=== PATIENT | male | born 1945 | race Caucasian/White ===

== ENCOUNTER 2018-07-17 20:42 | Emergency (ER) | END 2018-07-17 23:24 | disposition home or self-care (01) ==

== ENCOUNTER 2019-02-24 23:19 | Emergency (ER) | payer SELFPAY ==
[~2019-02-24] VITALS: Wt 79.0 kg
[~2019-02-24 23:19] MED LIST: RANI150T35 PO
[2019-02-24 23:34] VITALS: BP 141/71; PULSE 71; RESP 16
== END 2019-02-24 23:35 | disposition left against medical advice (07) ==
LOC: E/R 23:19
DX: Z53.21 Procedure and treatment not carried out due to patient leaving prior to being seen by health care provider (principal)

== ENCOUNTER 2019-09-20 01:02 | Inpatient (IN) | payer MEDICARE, BC ==
[~2019-09-20] VITALS: Ht 175.3 cm; Wt 86.6 kg
[~2019-09-20 01:02] MED LIST changes: +ASPI-817 ORAL; +ATOR-2 PO; +CLOP75TA28 PO; +ERGO500013 ORAL; +FURO40TA4 PO; +LEVO750T25 PO; +MAG ORAL; +RANI-535 PO; -RANI150T35 PO
[2019-09-20] MEDS ORDERED: IPRATROPIUM (NEB) 0.5 MG/2.5 ML AMP INH STA (01:06)
[2019-09-20] MEDS ORDERED: ALBUTEROL 0.083% (NEB) 2.5 MG/3 ML AMP INH STA (01:06)
[2019-09-20] MEDS ORDERED: NITROGLYCERIN 50 MG/D5W (PMX) 250 ML IV STA (01:11)
[2019-09-20] MEDS ORDERED: AZITHROMYCIN 500MG/NS (PMX) 250 ML IV STA (01:46)
[2019-09-20] MEDS ORDERED: CEFTRIAXONE 1 GM/50 ML (PMX) 50 ML IVPB STA (01:46)
[2019-09-20] MEDS ORDERED: FUROSEMIDE 40 MG INJ IV ONE (02:00)
[2019-09-20] MEDS ORDERED: ACETAMINOPHEN 325 MG TAB PO PRN ×2 (03:30→06:00)
[2019-09-20] MEDS ORDERED: ONDANSETRON 4 MG INJ IV PRN ×2 (03:30→06:00)
[2019-09-20] MEDS ORDERED: ALBUTEROL/IPRATROPIUM (NEB) 3 ML AMP HHN PRN (06:00)
[2019-09-20] MEDS ORDERED: NACL 0.9% 3 ML SYG IV SCH (06:00)
[2019-09-20] MEDS ORDERED: NITROGLYCERIN (SL) 0.4 MG TAB SL PRN (06:00)
[2019-09-20] MEDS ORDERED: LEVOFLOXACIN 750MG/D5W (PMX) 150 ML IVPB SCH (09:00)
[2019-09-20] MEDS ORDERED: HEPARIN 5,000 UNIT/1 ML VIAL SC SCH (09:00)
[2019-09-20] MEDS: ASPIRIN 81 MG TAB PO SCH (09:07)
[2019-09-20] MEDS: FAMOTIDINE 20 MG TAB PO SCH (09:07)
[2019-09-20] MEDS ORDERED: GLUCOSE GEL 15 GRAM TUBE BUCCAL PRN (10:00)
[2019-09-20] MEDS ORDERED: GLUCAGON 1 MG INJ IM PRN (10:00)
[2019-09-20] MEDS ORDERED: DEXTROSE 50% 50 ML SYRINGE IV PRN ×2 (10:00)
[2019-09-20] MEDS ORDERED: GLUCOSE GEL 15 GRAM TUBE PO PRN ×2 (10:00)
[2019-09-20] MEDS ORDERED: HEPARIN 1000 UNITS/ML 10 ML INJ IV PRN (10:00)
[2019-09-20] MEDS ORDERED: HEPARIN 1000 UNITS/ML 10 ML INJ IV ONE (10:00)
[2019-09-20] MEDS ORDERED: HEPARIN 25000 UNITS/250 ML 250 ML IV SCH ×2 (10:00→17:00)
[2019-09-20 10:16] VITALS: BP 145/79; PULSE 83; RESP 24
[2019-09-20 10:18] VITALS: Ht 175.3 cm; Wt 86.6 kg
[2019-09-20] MEDS: ATORVASTATIN 80 MG TAB PO SCH (11:59)
[2019-09-20 12:04] VITALS: BP 145/68; PULSE 70; RESP 20
[2019-09-20] MEDS: CLOPIDOGREL 75 MG TAB PO SCH (12:05)
[2019-09-20] MEDS: FUROSEMIDE 40 MG INJ IV SCH ×2 (12:05→17:27)
[2019-09-20] MEDS: ISOSORBIDE DINITRATE 10 MG TAB PO SCH ×2 (12:34→20:31)
[2019-09-20] MEDS: INSULIN ASPART [NOVOLOG] 3 ML PEN SC SCH ×3 (12:40→20:44)
[2019-09-20] MEDS: INSULIN GLARGINE [LANTus] (100 UNITS/ML) SYG SC SCH (12:40)
[2019-09-20] MEDS: AMIODARONE 200 MG TAB PO SCH (14:08)
[2019-09-20] MEDS: FLUTICASONE/VILANTEROL 100-25 INH SCH (14:23)
[2019-09-20 15:38] VITALS: BP 130/60; PULSE 64
[2019-09-20 20:00] VITALS: BP 140/64; PULSE 64; RESP 18
[2019-09-21] VITALS (7 sets, daily range): BP systolic 121–140; BP diastolic 58–67; PULSE 60–64; RESP 18–22
[2019-09-21] MEDS: MELATONIN 5 MG TABLET PO SCH ×2 (00:03→22:50)
[2019-09-21] MEDS: INSULIN ASPART [NOVOLOG] 3 ML PEN SC SCH ×6 (01:00→20:42)
[2019-09-21] MEDS: ACCU-CHEK XX SCH (02:00)
[2019-09-21] MEDS: FUROSEMIDE 40 MG INJ IV SCH (05:37)
[2019-09-21] MEDS ORDERED: FUROSEMIDE 40 MG INJ IV SCH (09:00)
[2019-09-21] MEDS: ASPIRIN 81 MG TAB PO SCH (09:11)
[2019-09-21] MEDS: ATORVASTATIN 80 MG TAB PO SCH (09:11)
[2019-09-21] MEDS: ESCITALOPRAM 10 MG TAB PO SCH (09:12)
[2019-09-21] MEDS: FEBUXOSTAT 40 MG TABLET PO SCH (09:12)
[2019-09-21] MEDS: CLOPIDOGREL 75 MG TAB PO SCH (09:12)
[2019-09-21] MEDS: FAMOTIDINE 20 MG TAB PO SCH (09:12)
[2019-09-21] MEDS: ISOSORBIDE DINITRATE 10 MG TAB PO SCH ×3 (09:12→20:36)
[2019-09-21] MEDS: AMIODARONE 200 MG TAB PO SCH (09:13)
[2019-09-21] MEDS: FLUTICASONE/VILANTEROL 100-25 INH SCH (09:16)
[2019-09-21] MEDS: INSULIN GLARGINE [LANTus] (100 UNITS/ML) SYG SC SCH (09:22)
[2019-09-21] MEDS ORDERED: POTASSIUM CHLORIDE 20 MEQ POWDER FOR ORAL SOLN PO ONE (09:30)
[2019-09-21] MEDS ORDERED: FUROSEMIDE 40 MG INJ IV ONE (16:00)
[2019-09-22] MEDS: ACCU-CHEK XX SCH (02:00)
[2019-09-22 03:29] VITALS: BP 131/61; PULSE 60; RESP 21
[2019-09-22 07:20] VITALS: BP 144/63; PULSE 60; RESP 20
[2019-09-22] MEDS: CLOPIDOGREL 75 MG TAB PO SCH (08:45)
[2019-09-22] MEDS: ASPIRIN 81 MG TAB PO SCH (08:45)
[2019-09-22] MEDS: FEBUXOSTAT 40 MG TABLET PO SCH (08:45)
[2019-09-22] MEDS: ISOSORBIDE DINITRATE 10 MG TAB PO SCH ×2 (08:47→12:06)
[2019-09-22] MEDS: AMIODARONE 200 MG TAB PO SCH (08:48)
[2019-09-22] MEDS: FAMOTIDINE 20 MG TAB PO SCH (08:48)
[2019-09-22] MEDS: ESCITALOPRAM 10 MG TAB PO SCH (08:48)
[2019-09-22] MEDS: INSULIN GLARGINE [LANTus] (100 UNITS/ML) SYG SC SCH (08:57)
[2019-09-22] MEDS ORDERED: LEVOFLOXACIN 750 MG TABLET PO SCH (09:00)
[2019-09-22] MEDS: ATORVASTATIN 80 MG TAB PO SCH (09:00)
[2019-09-22] MEDS ORDERED: FUROSEMIDE 40 MG TAB PO SCH (09:00)
[2019-09-22] MEDS: INSULIN ASPART [NOVOLOG] 3 ML PEN SC SCH ×2 (09:28→12:54)
[2019-09-22] MEDS ORDERED: FUROSEMIDE 40 MG INJ IV ONE (09:30)
[2019-09-22] MEDS: FLUTICASONE/VILANTEROL 100-25 INH SCH (09:56)
[2019-09-22 11:05] VITALS: BP 142/66; PULSE 63; RESP 20
== END 2019-09-22 13:46 | disposition home or self-care (01) | DRG 280 ==
LOC: E/R 01:02 → 6WM 03:03 → SUATTDRO 09:32
PROVIDERS: ADMIT Internal Medicine; ATTEND Internal Medicine
DX: I11.0 Hypertensive heart disease with heart failure (principal); I21.4 Non-ST elevation (NSTEMI) myocardial infarction; J96.01 Acute respiratory failure with hypoxia; J18.9 Pneumonia, unspecified organism; E87.1 Hypo-osmolality and hyponatremia; E87.3 Alkalosis; N17.9 Acute kidney failure, unspecified; I13.0 Hypertensive heart and chronic kidney disease with heart failure and stage 1 through stage 4 chronic kidney disease, or unspecified chronic kidney disease; I50.23 Acute on chronic systolic (congestive) heart failure; E11.9 Type 2 diabetes mellitus without complications; D64.9 Anemia, unspecified; E11.22 Type 2 diabetes mellitus with diabetic chronic kidney disease; Z95.2 Presence of prosthetic heart valve; Z95.1 Presence of aortocoronary bypass graft; N18.9 Chronic kidney disease, unspecified; I25.10 Atherosclerotic heart disease of native coronary artery without angina pectoris; I25.2 Old myocardial infarction; Z79.4 Long term (current) use of insulin; Z79.82 Long term (current) use of aspirin
CPT/HCPCS: 36415; 71045; 76775; 80048; 80053; 80061; 81001; 81003; 82043; 82550; 82553; 82803; 82962; 83036; 83605; 83735; 83880; 84100; 84145; 84155; 84300; 84443; 84484; 85025; 85610; 85730; 87081; 93005; 93306; 94660; 94664; 96365; 96366; 96375; J0456; J0696; J1644; J1815; J1940; J1956